=== PATIENT | female | born 2005 | race Caucasian/White ===

== ENCOUNTER 2025-03-11 19:06 | Observation (INO) | payer MEDICAID, SELFPAY ==
[2025-03-11 19:32] VITALS: BP 133/85; PULSE 92; RESP 16; RESP 98; TEMP 36.8; BMI 25.3
[2025-03-11 19:46] VITALS: BP 113/56; PULSE 81
--- NOTE | 2025-03-12 08:13 | PC.CC ---
spoke to Dr. Trammell after reviewing discharges requiring HH. He clarified patient does not need HH.
== END 2025-03-11 20:31 | disposition home health service (06) ==
PROVIDERS: Admitting Provider Specialist; PCP Family Medicine; Visit Provider Specialist
DX: O36.8120 Decreased fetal movements, second trimester, not applicable or unspecified (principal); O26.892 Other specified pregnancy related conditions, second trimester; R10.9 Unspecified abdominal pain; Z3A.23 23 weeks gestation of pregnancy
CPT/HCPCS: 59899

== ENCOUNTER 2025-05-30 09:49 | Outpatient (CLI) | payer MEDICAID, SELFPAY ==
[2025-05-30 09:55] VITALS: BMI 28.8
[2025-05-30 09:56] VITALS: BP 129/80; PULSE 93; RESP 18; RESP 98; TEMP 36.4; O2SAT 98
[2025-05-30 09:57] VITALS: BP 129/80; PULSE 78
[2025-05-30 10:07] VITALS: BP 115/69; PULSE 80
[2025-05-30 10:17] VITALS: BP 113/76; PULSE 81
[2025-05-30] MEDS: BETAMET ACET/BETAMET NA PH (Celestone) 6 MG/ML VIAL 12 MG IM (10:24)
[2025-05-30 10:27] VITALS: BP 130/82; PULSE 80
== END 2025-05-30 10:35 | disposition home or self-care (01) ==
LOC: S4S1 09:50 → S4SX 09:50
PROVIDERS: Referring Provider Specialist; Visit Provider Specialist
DX: Z34.03 Encounter for supervision of normal first pregnancy, third trimester (principal); Z36.9 Encounter for antenatal screening, unspecified; Z3A.34 34 weeks gestation of pregnancy
CPT/HCPCS: 59025; 96372; J0702

== ENCOUNTER 2025-05-31 10:14 | Outpatient (CLI) | payer MEDICAID, SELFPAY ==
[2025-05-31 10:15] VITALS: RESP 16; TEMP 36.6
[2025-05-31 10:18] VITALS: BMI 28.8
[2025-05-31 10:20] VITALS: BP 137/84; PULSE 91; PULSE 94; RESP 18; RESP 98; TEMP 36.6
[2025-05-31] MEDS: BETAMET ACET/BETAMET NA PH (Celestone) 6 MG/ML VIAL 12 MG IM (10:34)
[2025-05-31 10:42] VITALS: BP 114/64; PULSE 78
== END 2025-05-31 10:49 | disposition home or self-care (01) ==
LOC: S4S1 10:15 → S4SX 10:15
PROVIDERS: Referring Provider Obstetrics & Gynecology; Visit Provider Obstetrics & Gynecology
DX: Z34.03 Encounter for supervision of normal first pregnancy, third trimester (principal); Z36.9 Encounter for antenatal screening, unspecified; Z3A.34 34 weeks gestation of pregnancy
CPT/HCPCS: 59025; 96372; J0702

== ENCOUNTER 2025-06-01 09:23 | Observation (INO) | payer MEDICAID, SELFPAY ==
[2025-06-01] VITALS (51 sets, daily range): BP systolic 131–149; BP diastolic 65–86; PULSE 66–87; RESP 18–97; TEMP 36.6; O2SAT 96–98; BMI 29.1
[2025-06-01 11:41] LABS: Collection Type, Urine Clean Catch
[2025-06-01 11:46] LABS: Basophils # (Auto) 0.0 Thou/mm3 (0.0-0.2); Basophils % (Auto) 0 % (0-2.5); Eosinophils # (Auto) 0.0 Thou/mm3 (0.0-0.5); Eosinophils % (Auto) 0 % (0-10); Hematocrit 30.4 % (36.0-46.0); Hemoglobin 10.0 g/dL (12.0-16.0); Immature Granulocytes Auto 0.29 Thou/mm3 (0.00-0.00); Lymphocytes # (Auto) 1.8 Thou/mm3 (1.0-4.8); Lymphocytes % (Auto) 13 % (10-50); Mean Corpuscular HGB Conc 32.9 g/dl (31.0-37.0); Mean Corpuscular Hemoglobin 29.9 pg (25.0-35.0); Mean Corpuscular Volume 91 fL (80-100); Monocytes # (Auto) 1.0 Thou/mm3 (0.0-0.8); Monocytes % (Auto) 7 % (0-12); Neutrophils # (Auto) 11.4 Thou/mm3 (1.8-7.7); Neutrophils % (Auto) 78 % (37-80); Nucleated Red Blood Cell # 0.00 Thou/mm3 (0.00-0.00); Nucleated Red Blood Cell % 0 /100 WBC (0); Platelet Count 229 Thou/mm3 (140-440); RDW Standard Deviation 43.4 fL (36.4-46.3); Red Blood Count 3.34 Miln/mm3 (4.00-5.20); White Blood Count 14.5 Thou/mm3 (3.6-11.0)
[2025-06-01 11:58] LABS: Creatinine,Random Urine 51 mg/dL (30-125); Protein Total, Random Urine 42 mg/dL (1-14)
[2025-06-01 12:23] LABS: Alanine Aminotransferase < 7 U/L (10-49); Albumin, Serum 3.3 gm/dL (3.5-5.0); Albumin/Globulin Ratio 1.4 (1.2-2.2); Alkaline Phosphatase 150 U/L (46-116); Anion Gap 10 (7-16); Aspartate Amino Transferase 14 U/L (0-34); BUN/Creatinine Ratio 18 Ratio (12-20); Bilirubin,Total 0.5 mg/dL (0.3-1.2); Blood Urea Nitrogen 9 mg/dL (9-23); Calcium 8.3 mg/dL (8.3-10.6); Calcium (Corrected) 8.9 mg/dL (8.5-10.1); Carbon Dioxide 21.5 mMol/L (20.0-31.0); Chloride 109 mMol/L (98-107); Creatinine (Component) 0.5 mg/dL (0.6-1.3); Estimated Creatinine Clearance 210.5 mL/min (>60); Globulin 2.3 gm/dL (2.3-3.5); Glucose 97 mg/dL (74-106); LDH (Lactate Dehydrogenase) 180 U/L (120-246); Osmolality,Calculated 278 (275-295); Potassium 3.9 mMol/L (3.4-5.1); Sodium 140 mMol/L (136-145); Total Protein 5.6 gm/dL (5.7-8.2); Uric Acid 4.0 mg/dL (3.1-7.8); eGFR > 60 See Note
[2025-06-01 12:44] LABS: Fibrinogen 346 mg/dL (175-375); INR 0.9 (0.9-1.3); Partial Thromboplastin Time 22.5 Seconds (22.0-36.0); Prothrombin Time 10.0 Seconds (9.0-12.2)
[2025-06-01 12:47] LABS: Bacteria,Urine 2+; Bilirubin,Urine Negative (Negative); Blood,Urine Negative (Negative); Clarity,Urine Clear (Clear/Hazy); Color,Urine Lt-Yellow (Lt Yel-Yel); Glucose, Urine Negative (Negative); Ketones,Urine Negative (Negative); Leukocyte Esterase,Urine Negative (Negative); Nitrite,Urine Negative (Negative); PH,Urine 6.5 (5.0-7.0); Protein,Urine Trace (Neg - Trace); RBC,Urine 1 /hpf (0-3); Specific Gravity,Urine 1.013 (1.001-1.035); Squamous Epithelial Cell,Urine 5 /hpf (0-5); Urobilinogen,Urine Negative mg/dL (0.0-1.0); WBC,Urine 3 /hpf (0-5)
== END 2025-06-01 12:55 | disposition home or self-care (01) ==
PROVIDERS: Admitting Provider Obstetrics & Gynecology; Visit Provider Obstetrics & Gynecology
DX: O26.893 Other specified pregnancy related conditions, third trimester (principal); Z3A.34 34 weeks gestation of pregnancy; R10.30 Lower abdominal pain, unspecified; R10.11 Right upper quadrant pain; R42 Dizziness and giddiness
CPT/HCPCS: 36415; 59025; 59899; 80053; 81001; 82570; 83615; 84156; 84550; 85025; 85384; 85610; 85730

== ENCOUNTER 2025-06-07 19:02 | Observation (INO) | payer MEDICAID, SELFPAY ==
[2025-06-07] VITALS (45 sets, daily range): BP systolic 116–144; BP diastolic 62–97; PULSE 80–107; RESP 18–97; TEMP 36.6; O2SAT 94–98; BMI 29.3
[2025-06-07 19:50] LABS: Collection Type, Urine Clean Catch
[2025-06-07] MEDS: ACETAMINOPHEN 500 MG TABLET 1000 MG PO (19:57)
[2025-06-07 19:58] LABS: Bacteria,Urine 1+; Bilirubin,Urine Negative (Negative); Blood,Urine Negative (Negative); Clarity,Urine Clear (Clear/Hazy); Color,Urine Yellow (Lt Yel-Yel); Glucose, Urine Negative (Negative); Ketones,Urine Negative (Negative); Leukocyte Esterase,Urine Negative (Negative); Nitrite,Urine Negative (Negative); PH,Urine 6.5 (5.0-7.0); Protein,Urine 1+ (Neg - Trace); RBC,Urine 2 /hpf (0-3); Specific Gravity,Urine 1.023 (1.001-1.035); Squamous Epithelial Cell,Urine 12 /hpf (0-5); Urobilinogen,Urine Negative mg/dL (0.0-1.0); WBC,Urine 4 /hpf (0-5)
[2025-06-07 20:13] LABS: Creatinine,Random Urine 94 mg/dL (30-125); Protein Total, Random Urine 142 mg/dL (1-14)
[2025-06-07 20:44] LABS: Basophils # (Auto) 0.0 Thou/mm3 (0.0-0.2); Basophils % (Auto) 0 % (0-2.5); Eosinophils # (Auto) 0.1 Thou/mm3 (0.0-0.5); Eosinophils % (Auto) 1 % (0-10); Hematocrit 32.4 % (36.0-46.0); Hemoglobin 10.9 g/dL (12.0-16.0); Immature Granulocytes Auto 0.05 Thou/mm3 (0.00-0.00); Lymphocytes # (Auto) 2.6 Thou/mm3 (1.0-4.8); Lymphocytes % (Auto) 21 % (10-50); Mean Corpuscular HGB Conc 33.6 g/dl (31.0-37.0); Mean Corpuscular Hemoglobin 29.8 pg (25.0-35.0); Mean Corpuscular Volume 89 fL (80-100); Monocytes # (Auto) 0.9 Thou/mm3 (0.0-0.8); Monocytes % (Auto) 7 % (0-12); Neutrophils # (Auto) 8.9 Thou/mm3 (1.8-7.7); Neutrophils % (Auto) 71 % (37-80); Nucleated Red Blood Cell # 0.00 Thou/mm3 (0.00-0.00); Nucleated Red Blood Cell % 0 /100 WBC (0); Platelet Count 254 Thou/mm3 (140-440); RDW Standard Deviation 42.5 fL (36.4-46.3); Red Blood Count 3.66 Miln/mm3 (4.00-5.20); White Blood Count 12.7 Thou/mm3 (3.6-11.0)
[2025-06-07 21:00] LABS: Fibrinogen 419 mg/dL (175-375); INR 0.9 (0.9-1.3); Partial Thromboplastin Time 24.5 Seconds (22.0-36.0); Prothrombin Time 9.9 Seconds (9.0-12.2)
[2025-06-07 21:30] LABS: Alanine Aminotransferase < 7 U/L (10-49); Albumin, Serum 3.3 gm/dL (3.5-5.0); Albumin/Globulin Ratio 1.5 (1.2-2.2); Alkaline Phosphatase 175 U/L (46-116); Anion Gap 10 (7-16); Aspartate Amino Transferase 13 U/L (0-34); BUN/Creatinine Ratio 22 Ratio (12-20); Bilirubin,Total 0.6 mg/dL (0.3-1.2); Blood Urea Nitrogen 13 mg/dL (9-23); Calcium 9.2 mg/dL (8.3-10.6); Calcium (Corrected) 9.8 mg/dL (8.5-10.1); Carbon Dioxide 22.9 mMol/L (20.0-31.0); Chloride 105 mMol/L (98-107); Creatinine (Component) 0.6 mg/dL (0.6-1.3); Estimated Creatinine Clearance 176.0 mL/min (>60); Globulin 2.2 gm/dL (2.3-3.5); Glucose 103 mg/dL (74-106); Osmolality,Calculated 275 (275-295); Potassium 4.4 mMol/L (3.4-5.1); Sodium 138 mMol/L (136-145); Total Protein 5.5 gm/dL (5.7-8.2); Uric Acid 4.3 mg/dL (3.1-7.8); eGFR > 60 See Note
--- NOTE | 2025-06-07 21:55 | PD.ADDPROG ---
Addendum Progress Note Addendum Date of report being addended: 06/07/25 Narrative: Patient is a 20-year-old G1, P0 at 35 3/[address] Trammell presented to [facility] c/o TORRES and elevated BPs. BPs 140s/90s then stabilized without meds . All preeclamptic labs were normal with the exception of a urine protein creatinine ratio which was a equivalent to 2 g in [address] last time Dr. Trammell ordered the test on 06/01/2025 it was 1 g. Patient denies scotomata or right upper quadrant pain or any headache now. She is comfortable going home. Her other preeclamptic labs are normal. Her urine has 1+ protein. She has an appointment with Dr Trammell on Tuesday and an induction scheduled at 37 weeks. Patient has already been given Celestone x 2. She is to come back to triage for any worsening blood pressures especially in the 150s to 160s over 90s to 100, severe headache, right upper quadrant pain or scotomata.
== END 2025-06-07 22:05 | disposition home or self-care (01) ==
PROVIDERS: Admitting Provider Obstetrics & Gynecology; Visit Provider Obstetrics & Gynecology
DX: O26.893 Other specified pregnancy related conditions, third trimester (principal); R03.0 Elevated blood-pressure reading, without diagnosis of hypertension; Z3A.35 35 weeks gestation of pregnancy
CPT/HCPCS: 36415; 59025; 59899; 80053; 81001; 82570; 84156; 84550; 85025; 85384; 85610; 85730; A9270

== ENCOUNTER 2025-06-19 17:45 | Inpatient (IN) | payer MEDICAID, SELFPAY ==
--- NOTE | 2025-06-18 12:23 | PC.NURSE ---
PT CALLED YESTERDAY AND TODAY, BOTH DAYS THIS RN SPOKE WITH PT, INFORMED OF NO BED AVAILABLE FOR IOL, EDUCATED PT ON KICK COUNT, LABOR AND PRE-E PRECAUTIONS, TODAY INFORMED PT OF THIS RN WILL CALL PT ONCE BED BECOMES AVAILABLE, PT VERBALIZED UNDERSTANDING
[2025-06-19] VITALS (43 sets, daily range): BP systolic 120–183; BP diastolic 60–115; PULSE 74–110; RESP 16–19; TEMP 36.4–36.8; O2SAT 94–100; BMI 29.5
--- NOTE | 2025-06-19 18:55 | XR_ITS ---
Examination: Complete OB ultrasound greater than 14 weeks Date and time of exam: June 19, 2025, 1901 hours INDICATIONS: Labor induction today, unknown weight. Findings: Viable intrauterine single fetus with single amniotic sac presentation cephalic. Cardiac motion 144 BPM. Placenta anterior grade 3. Three-vessel umbilical cord. Amniotic fluid index 8.6 cm. Cervix 4.3 cm. Ovaries obscured by bowel gas.. Composite estimated gestational age based on BPD, head circumference, abdominal circumference, femur length is 35 weeks 3 days. Estimated weight 2383 g. Survey of intracranial anatomy, spinal anatomy, abdominal anatomy, four-chamber heart performed with no abnormalities identified. Impression: Viable intrauterine gestation cephalic presentation Estimated weight 2383 g.
[2025-06-19 19:29] LABS: Collection Type, Urine Clean Catch; WBC,Urine 0 /hpf (0-5)
[2025-06-19 19:48] LABS: Basophils # (Auto) 0.0 Thou/mm3 (0.0-0.2); Basophils % (Auto) 0 % (0-2.5); Eosinophils # (Auto) 0.1 Thou/mm3 (0.0-0.5); Eosinophils % (Auto) 1 % (0-10); Hematocrit 34.1 % (36.0-46.0); Hemoglobin 11.6 g/dL (12.0-16.0); Immature Granulocytes Auto 0.04 Thou/mm3 (0.00-0.00); Lymphocytes # (Auto) 2.4 Thou/mm3 (1.0-4.8); Lymphocytes % (Auto) 22 % (10-50); Mean Corpuscular HGB Conc 34.0 g/dl (31.0-37.0); Mean Corpuscular Hemoglobin 30.1 pg (25.0-35.0); Mean Corpuscular Volume 89 fL (80-100); Monocytes # (Auto) 0.8 Thou/mm3 (0.0-0.8); Monocytes % (Auto) 7 % (0-12); Neutrophils # (Auto) 7.6 Thou/mm3 (1.8-7.7); Neutrophils % (Auto) 70 % (37-80); Nucleated Red Blood Cell # 0.00 Thou/mm3 (0.00-0.00); Nucleated Red Blood Cell % 0 /100 WBC (0); Platelet Count 221 Thou/mm3 (140-440); RDW Standard Deviation 43.8 fL (36.4-46.3); Red Blood Count 3.85 Miln/mm3 (4.00-5.20); White Blood Count 10.9 Thou/mm3 (3.6-11.0)
[2025-06-19 20:03] LABS: Bacteria,Urine 4+; Bilirubin,Urine Negative (Negative); Blood,Urine Trace (Negative); Clarity,Urine Clear (Clear/Hazy); Color,Urine Lt-Yellow (Lt Yel-Yel); Glucose, Urine Negative (Negative); Hyaline Casts,Urine < 1 /hpf (0-1); Ketones,Urine Negative (Negative); Leukocyte Esterase,Urine Negative (Negative); Nitrite,Urine Negative (Negative); PH,Urine 6.5 (5.0-7.0); Protein,Urine 2+ (Neg - Trace); RBC,Urine 3 /hpf (0-3); Specific Gravity,Urine 1.016 (1.001-1.035); Squamous Epithelial Cell,Urine 2 /hpf (0-5); Urobilinogen,Urine Negative mg/dL (0.0-1.0)
[2025-06-19] MEDS: NIFEdipine XL 30 MG TABCR PO (20:08)
[2025-06-19 20:24] LABS: Fibrinogen 462 mg/dL (175-375); INR 0.9 (0.9-1.3); Partial Thromboplastin Time 25.0 Seconds (22.0-36.0); Prothrombin Time 9.8 Seconds (9.0-12.2)
[2025-06-19 20:38] LABS: Creatinine,Random Urine 99 mg/dL (30-125); Protein Total, Random Urine 176 mg/dL (1-14)
[2025-06-19 20:42] LABS: Syphilis Nonreactive (Nonreactive)
[2025-06-19 20:52] LABS: Alanine Aminotransferase < 7 U/L (10-49); Albumin, Serum 3.5 gm/dL (3.5-5.0); Albumin/Globulin Ratio 1.4 (1.2-2.2); Alkaline Phosphatase 209 U/L (46-116); Anion Gap 10 (7-16); Aspartate Amino Transferase 13 U/L (0-34); BUN/Creatinine Ratio 13 Ratio (12-20); Bilirubin,Total 0.6 mg/dL (0.3-1.2); Blood Urea Nitrogen 10 mg/dL (9-23); Calcium 9.4 mg/dL (8.3-10.6); Calcium (Corrected) 9.8 mg/dL (8.5-10.1); Carbon Dioxide 22.8 mMol/L (20.0-31.0); Chloride 105 mMol/L (98-107); Creatinine (Component) 0.8 mg/dL (0.6-1.3); Estimated Creatinine Clearance 132.4 mL/min (>60); Globulin 2.5 gm/dL (2.3-3.5); Glucose 96 mg/dL (74-106); Osmolality,Calculated 274 (275-295); Potassium 3.9 mMol/L (3.4-5.1); Sodium 138 mMol/L (136-145); Total Protein 6.0 gm/dL (5.7-8.2); eGFR > 60 See Note
[2025-06-19 21:01] LABS: Uric Acid 5.2 mg/dL (3.1-7.8)
--- NOTE | 2025-06-19 21:05 | PD.LDHP ---
Documentation for date of: 06/19/25 OB Labor/Induct. HPI History of Present Illness Chief complaint: induction of labor : 1 Para: 0 Term pregnancies: 0 pregnancies: 0 Living children: 0 History of Abortions: Spontaneous and Elective: 0 History of Vaginal deliveries: 0 History of sections: No History of : No Date of last menstrual period: 09/30/24 GRACE: 07/07/25 Gestational Age (weeks): 37 Gestational Age (days): 3 Gestational age based on last menstrual period: 37 Indication for induction: medical complication (pre-eclampsia withOUT severe features ) History of present illness: Patient presents for scheduled induction of labor. Indication: pre-eclampsia withOUT severe features. No regular/painful ctx. No LOF. No vaginal bleeding. Normal movement. No TORRES, vision changes, RUQ pain. History of Present Dating criteria: LMP confirmed by 1st trimester US Adequate Care: Yes Ultrasounds: other (04/30 at 30wk: 28%ile) Narrative: PNC with Dr. Trammell's office Pre-eclampsia withOUT severe features. In office bp's on 04/30 and 05/15 were 150's systolic. 24hr UP on 05/07: 261mg Labs Maternal Blood Type: A Pos Labs: Positive: Rubella Titre, Negative: RPR, Hepatitis B, HIV, Chlamydia and Gonorrhea and Unknown: Herpes Type 1, Herpes Type 2, Group Beta Strep and Covid-19 Review of Systems Review of Systems Narrative Review of Systems: Review of Systems Systems Reviewed: All systems reviewed, normal except as documented Constitutional Constitutional: Denies body ache(s), Denies chills, Denies fever(s) and Denies headache(s) ENT Ears, Nose, Mouth, and Throat: Denies headache(s) and Denies vertigo Cardiovascular Cardiovascular: Denies chest pain, Denies palpitations, Denies dyspnea and Denies syncope Respiratory Respiratory: Denies cough, Denies dyspnea Gastrointestinal Gastrointestinal: Denies nausea and Denies vomiting Neurologic Neurologic: Denies convulsions, Denies headache(s), Denies other visual disturbances, Denies syncope and Denies vertigo Past Medical History Surgical History SURGICAL: Negative Section Meds Home Medications and Allergies Home Medications ?Medication ?Instructions ?Recorded ?Confirmed ?Type aspirin 81 mg tablet,delayed 81 mg PO QDAY 05/30/25 06/19/25 History release vits no.130-ferrous fum 1 tab PO .q day 06/07/25 06/19/25 History 27 mg iron-folic acid 800 mcg tablet ( Vitamin) Allergies Allergy/AdvReac Type Severity Reaction Status Date / Time No Known Allergies Allergy Verified 06/19/25 19:33 OB Exam Physical Exam Vital signs: Temp Pulse Resp BP O2 Del Method 98.3 F 77 18 121/70 Room Air 06/19/25 19:33 06/19/25 20:55 06/19/25 19:33 06/19/25 20:55 06/19/25 18:00 Narrative: General: well developed, well nourished, no acute distress, conversant Cardiac: normal heart rate Lungs: breathing without distress Abdomen: soft, gravid, non-tender, no rebound or guarding Extremities: no pain with palpation of calves Detailed Labor and Delivery Exam Dilation (cm): 0 Effacement (%): 0 Cervix position: posterior station: -3 Consistency: firm Presentation: Vertex (by ultrasound) Membranes: intact Baseline heart rate: 130 monitor accelerations: 15x15 monitor decelerations: None group home variability: Moderate (11-25) Contraction frequency (min): no ctx pattern OB Results Labs 06/19/25 19:00 06/19/25 18:15 Labs: Short CBC 06/19/25 Range/Units 19:00 WBC 10.9 (3.6-11.0) Thou/mm3 Hgb 11.6 L (12.0-16.0) g/dL Hct 34.1 L (36.0-46.0) % Plt Count 221 D (140-440) Thou/mm3 BMP 06/19/25 18:15 Sodium 138 Potassium 3.9 Chloride 105 Carbon Dioxide 22.8 BUN 10 Creatinine 0.8 Glucose 96 Calcium 9.4 Liver Function 06/19/25 Range/Units 18:15 Total Bilirubin 0.6 (0.3-1.2) mg/dL AST 13 (0-34) U/L ALT < 7 L (10-49) U/L Alkaline Phosphatase 209 H (46-116) U/L Albumin 3.5 (3.5-5.0) gm/dL Urine 06/19/25 Range/Units 19:00 Urine Color Lt-Yellow (Lt Yel-Yel) Urine Clarity Clear (Clear/Hazy) Urine pH 6.5 (5.0-7.0) Ur Specific [place] 1.016 (1.001-1.035) Urine Protein 2+ A (Neg - Trace) Urine Glucose (UA) Negative (Negative) OB Assessment & Plan Assessment and Plan (1) Pre-eclampsia affecting , antepartum: Status: Acute Assessment and plan: Ro is a 20yo with SIUP at 37&3wk presenting for IOL for: pre-eclampsia withOUT severe features. SCE: closed/thick/high. Vitals significant for mild range bp's (a couple non-sustained severe range bp's), benign exam. No sx of pre-E. Reassuring assessment overall. PMhx/PNC significant for: PNC with Dr. Trammell's office Pre-eclampsia withOUT severe features. In office bp's on 04/30 and 05/15 were 150's systolic. 24hr UP on 05/07: 261mg. Taking ASA 81mg QD. Significantly, urine p:c has increased from 0.5 to 1.7 between 06/01 and today (06/19). Only other PIH lab of note is serum creatinine (0.8). Hgb 11.6, plt 221, uric acid 5.2, LFTs wnl. In addition, ultrasound ordered upon admission demonstrates IUGR with 3.2%ile (2383g). Plan: -Admit to L&D -Establish IV, routine labs -CEFM -Regular diet [id number], then clear liquid diet in labor -Assembly Associate/consent re: iol and -GBS status: unknown. Ampicillin per protocol. -Will initiate IOL with: cervidil -Initiate nifedipine 30mg XL PO QD for mild range bp's. Close eye to bp's. If sustained severe range bp's occur, will engage labetalol anti-HTN med protocol and initiate IV MgSO4. -Safe to proceed Khushi Thornton MD (2) IUGR (intrauterine growth restriction) affecting care of mother: Status: Acute (3) 37 weeks gestation of : Status: Acute (4) Encounter for induction of labor: Status: Acute (2) IUGR (intrauterine growth restriction) affecting care of mother Qualifiers: Fetus number: single or unspecified fetus Trimester: third trimester Qualified Code(s): O36.5930 - Maternal care for other known or suspected poor growth, third trimester, not applicable or unspecified
[2025-06-19 23:29] LABS: Amphetamine/Metham Scrn,Ur OB Negative (Negative); Benzoylecgonine Screen, Ur OB Negative (Negative); Opiate Screen,Urine OB Negative (Negative); THC Screen,Urine OB Negative (Negative)
[2025-06-20] VITALS (128 sets, daily range): BP systolic 121–169; BP diastolic 72–103; PULSE 71–114; RESP 13–23; TEMP 36.4–36.7; O2SAT 89–100
--- NOTE | 2025-06-20 08:30 | PD.LDPN ---
Documentation for date of: 06/20/25 OB Labor Progress Note Pelvic Exam Dilation (cm): 0 Effacement (%): 0 station: -3 Amniotic membrane status: Intact Contractions Monitor mode: External Contraction frequency: 1.5-2.5 Contraction intensity: Mild Status status: Category l Assessment and Plan Comments: Intrapartum Note Patient doing well. Cervidil has been in 11 hours and ctx on the monitor are every 1 to 2 minutes, though not painful. Vitals: normotensive to mild range bp's, afebrile Cat I FHRT SCE: ft/thick/high, very posterior. Cervidil removed. Will initiate cytotec 25mcg PV Q4hr Will attempt cervical parks balloon when possible Continue nifedipine 30mg XL PO QD Continue to closely observe bp's CEFM Safe to proceed Khushi Thornton MD
[2025-06-20] MEDS: TERBUTALINE SULF INJ 1 MG/ML VIAL 0.25 MG SC (13:58)
[2025-06-20] MEDS: RINGERS LACTATED 1000 ML 1,000 ML 100 ML IV (14:00)
--- NOTE | 2025-06-20 14:25 | ESPR_ITS ---
Documentation for date of: 06/20/25 OB Labor Progress Note Pelvic Exam Dilation (cm): 0 Effacement (%): 0 station: -3 Amniotic membrane status: Intact Contractions Monitor mode: External Contraction frequency: 1-3 Contraction intensity: Mild Status status: Category ll Assessment and Plan Comments: Decision for section I was called by RN for a few late FHR decels after first dose of cytotec (resolved with repositioning). Tracing reviewed. Discussed with patient that if already having late FHR decels, and fetus is 3%ile, likely will not tolerate the labor process. She is very amenable to section. Will proceed with PLTCS for intolerance to labor in the setting of IUGR. -Counseled/consented re: section. Discussed all r/b/a to include: bleeding (possible need for blood transfusion), infection (subcutaneous, deeper layers or uterine with possible need for prolonged admission or re-admission for IV antibiotics, I&D with wound packing, etc), injury to nearby structures such as bladder, bowel, ureters, blood vessels, nerves with possible need for re- operation, pain, injury to baby, hysterectomy, DVT/PE, . Answered all questions to patient and their support person's satisfaction. -IV abx ppx: ancef 2g IV x1 -Nursing and anesthesia team aware of plan for section. Will proceed to OR when team is ready Khushi Thronton MD
[2025-06-20] MEDS: ceFAZolin/D5W 2 GM IV 2 GM/100 ML BAG IV (15:15)
[2025-06-20] MEDS: METOCLOPRAMIDE INJ 5 MG/ML VIAL 2 ML 10 MG IVP (15:16)
[2025-06-20] MEDS: FAMOTIDINE INJ 10 MG/ML VIAL 2 ML 20 MG IV (15:16)
--- NOTE | 2025-06-20 16:53 | PD.GYNPROC ---
Operative Note - LIEUTENANT COLONEL Procedure Date of procedure: 06/20/25 Procedure Performed: Primary Low Transverse Section Indication: Ro is a 20yo with SIUP at 37w4d undergoing induction of labor for pre-eclampsia withOUT severe features in the setting of intra-uterine growth restriction (3%ile). She received cervidil and then cytotec (one dose), after which she began to have intermittent late heart rate decelerations. Pre-Op diagnosis: SIUP at 37w4d Pre-eclampsia withOUT severe features Intra-uterine growth restriction 3%ile Category II FHRT remote from delivery ( intolerance to labor) Post-Op diagnosis: SIUP at 37w4d Pre-eclampsia withOUT severe features Intra-uterine growth restriction 3%ile Category II FHRT remote from delivery ( intolerance to labor) Anesthesia type: Spinal Fluids: crystalloid Fluid amount (mL): 600 Urine output (mL): 200 Estimated blood loss (ml): 650 Findings: Male infant in OT presentation, apgars 9/9, weight [id number], TOB 1555. Normal appearing uterus, fallopian tubes and ovaries. Complications: none Narrative: After obtaining informed consent, the patient was taken to the operating room. There was reassuring heart rate tracing prior. Spinal anesthesia was administered. A parks catheter was placed and bilateral sequential compression devices were placed. She was then prepped and draped in the normal sterile fashion in the dorsal supine position with left lateral tilt. A timeout was performed to confirm patient name, date of , procedure and indication. The team was in agreement. Spinal anesthesia was found to be adequate using an Allis clamp. Anceph 2g IV x1 were given for prophylaxis. A Pfannenstiel skin incision was then made with the scalpel and carried through to the underlying layer of fascia. The fascia was incised in the midine and the incision was extended laterally with the Mays scissors. The superior and inferior aspects of the fascial incision were then grasped with the Agustín clamps, elevated and the underlying rectus muscles were dissected off bluntly and sharply. The peritoneum was entered digitally and the rectus muscles were then in the midline. The peritoneal incision was then extended superiorly and inferiorly with good visualization of the bladder. An Chava retractor was placed and the vesicouterine peritoneum was then identified, grasped with the pickups, and entered sharply with the Metzenbaum scissors. The incision was extended laterally and the bladder flap created digitally. The lower uterine segment was scored in a transverse fashion with the scalpel. The uterus was then entered bluntly and the incision was extended with traction with clear amniotic fluid noted. The infant's head was elevated to the level of the incision. Fundal pressure was applied. The head was delivered atraumatically in the OT position. The anterior shoulder, posterior shoulder and corpus were delivered without difficulty. The nose and mouth were suctioned with bulb suction and cord was clamped x2 and cut. was vigorous. The was handed off to the awaiting nursing team. Cord blood obtained for typing. The placenta was then removed with uterine massage and cord traction. The uterus was exteriorized and cleared of all clot and debris. The uterine incision was repaired with 0-vicryl suture in a running locking fashion. A second layer of O-monocryl was used to closed the hysterotomy incision in an imbricating fashion. The uterine incision was inspected and hemostasis was noted. IV pitocin was given per protocol and there was good uterine tone. The posterior cul-de-sac was suctioned and the uterus returned to the abdomen. The gutters were cleared of all clot. Chava retractor was removed. The peritoneum was closed using a 3-0 vicryl suture in running fashion. The rectus muscles were inspected and small areas of oozing were cauterized. The fascia was reapproximated with 0-Vicryl suture in a running fashion. The subcutaneous tissue was then irrigated. Margaret's fascia was reapproximated using 3-0 vicryl suture in a running fashion in 2 layers. The skin was reapproximated with 4-0 monocryl suture in running subcuticular fashion. The incision was cleaned with a wet lap and dried with a dry lap. Tktrtxevx-zycxzbcszit-yeeb bandage was applied overlying the incision and activated according to telecommunications facility examiner instructions. Fundus was firm at the umbilicus. Sponge, lap and needle counts were correct x2. The procedure was without complications and the patient tolerated the procedure well. She was taken to recover further on Labor and Delivery, in stable condition. Surgical staff Operation Date: 06/20/25 15:15 <No data on this case meets the specified criteria> Diagnosis Discharge Diagnosis (1) intolerance to labor, delivered, current hospitalization: Status: Acute (2) Delivery by section: Status: Acute (3) IUGR (intrauterine growth restriction) affecting care of mother: Status: Acute (4) Pre-eclampsia affecting , antepartum: Status: Acute (5) 37 weeks gestation of : Status: Acute Problem List Completed Was Problem List Reviewed/Reconciled?: Yes (3) IUGR (intrauterine growth restriction) affecting care of mother Qualifiers: Fetus number: single or unspecified fetus Trimester: third trimester Qualified Code(s): O36.5930 - Maternal care for other known or suspected poor growth, third trimester, not applicable or unspecified
[2025-06-20] MEDS: ACETAMINOPHEN IVPB 1,000 MG/100 ML VIAL 250 MG IV (18:40)
[2025-06-20] MEDS: OXYTOCIN in NS 20 units 20 UNIT/1,000 ML BAG 125 UNIT IV (18:40)
[2025-06-20] MEDS: NIFEdipine XL 30 MG TABCR PO (19:05)
--- NOTE | 2025-06-20 19:22 | PC.NURSE ---
1855-Norberto OCAMPO made aware of BPs from recovery including most recent 162/102. Orders received for patient to receive nifedipine 30mg dose now and change order going forward to BID
[2025-06-20] MEDS: KETOROLAC INJ 30 MG/ML VIAL IVP (21:57)
[2025-06-21] VITALS (8 sets, daily range): BP systolic 129–147; BP diastolic 80–98; PULSE 76–107; RESP 15–18; TEMP 36.4–36.8; O2SAT 95–99
[2025-06-21] MEDS: ACETAMINOPHEN IVPB 1,000 MG/100 ML VIAL 250 MG IV (00:47)
[2025-06-21] MEDS: OXYTOCIN in NS 20 units 20 UNIT/1,000 ML BAG 125 UNIT IV (04:18)
[2025-06-21] MEDS: KETOROLAC INJ 30 MG/ML VIAL IVP ×2 (04:25→10:30)
[2025-06-21 06:54] LABS: Basophils # (Auto) 0.0 Thou/mm3 (0.0-0.2); Basophils % (Auto) 0 % (0-2.5); Eosinophils # (Auto) 0.0 Thou/mm3 (0.0-0.5); Eosinophils % (Auto) 0 % (0-10); Hematocrit 31.0 % (36.0-46.0); Hemoglobin 10.7 g/dL (12.0-16.0); Immature Granulocytes Auto 0.09 Thou/mm3 (0.00-0.00); Lymphocytes # (Auto) 2.0 Thou/mm3 (1.0-4.8); Lymphocytes % (Auto) 10 % (10-50); Mean Corpuscular HGB Conc 34.5 g/dl (31.0-37.0); Mean Corpuscular Hemoglobin 30.7 pg (25.0-35.0); Mean Corpuscular Volume 89 fL (80-100); Monocytes # (Auto) 1.1 Thou/mm3 (0.0-0.8); Monocytes % (Auto) 5 % (0-12); Neutrophils # (Auto) 16.8 Thou/mm3 (1.8-7.7); Neutrophils % (Auto) 84 % (37-80); Nucleated Red Blood Cell # 0.00 Thou/mm3 (0.00-0.00); Nucleated Red Blood Cell % 0 /100 WBC (0); Platelet Count 213 Thou/mm3 (140-440); RDW Standard Deviation 45.0 fL (36.4-46.3); Red Blood Count 3.48 Miln/mm3 (4.00-5.20); White Blood Count 20.0 Thou/mm3 (3.6-11.0)
[2025-06-21] MEDS: NIFEdipine XL 30 MG TABCR PO ×2 (08:31→21:02)
[2025-06-21] MEDS: PRENATAL VITAMIN/FE FUM/FA TABLET 1 TAB PO (08:32)
[2025-06-21] MEDS: DOCUSATE SOD 100 MG CAPSULE PO ×2 (08:32→21:02)
[2025-06-21] MEDS: IBUPROFEN TAB 400 MG TABLET 800 MG PO (16:34)
[2025-06-21] MEDS: HYDROcodone/APAP 5/325 TABLET 1 TAB PO (19:49)
[2025-06-22 03:55] VITALS: BP 141/91; PULSE 97; RESP 16; TEMP 36.5; O2SAT 97
[2025-06-22 05:46] LABS: Basophils # (Auto) 0.0 Thou/mm3 (0.0-0.2); Basophils % (Auto) 0 % (0-2.5); Eosinophils # (Auto) 0.1 Thou/mm3 (0.0-0.5); Eosinophils % (Auto) 1 % (0-10); Hematocrit 30.3 % (36.0-46.0); Hemoglobin 10.1 g/dL (12.0-16.0); Immature Granulocytes Auto 0.05 Thou/mm3 (0.00-0.00); Lymphocytes # (Auto) 2.3 Thou/mm3 (1.0-4.8); Lymphocytes % (Auto) 20 % (10-50); Mean Corpuscular HGB Conc 33.3 g/dl (31.0-37.0); Mean Corpuscular Hemoglobin 30.1 pg (25.0-35.0); Mean Corpuscular Volume 90 fL (80-100); Monocytes # (Auto) 0.9 Thou/mm3 (0.0-0.8); Monocytes % (Auto) 8 % (0-12); Neutrophils # (Auto) 8.0 Thou/mm3 (1.8-7.7); Neutrophils % (Auto) 71 % (37-80); Nucleated Red Blood Cell # 0.00 Thou/mm3 (0.00-0.00); Nucleated Red Blood Cell % 0 /100 WBC (0); Platelet Count 209 Thou/mm3 (140-440); RDW Standard Deviation 46.7 fL (36.4-46.3); Red Blood Count 3.36 Miln/mm3 (4.00-5.20); White Blood Count 11.3 Thou/mm3 (3.6-11.0)
[2025-06-22] MEDS: IBUPROFEN TAB 400 MG TABLET 800 MG PO (06:45)
[2025-06-22 08:20] VITALS: BP 140/85; PULSE 101
[2025-06-22] MEDS: NIFEdipine XL 30 MG TABCR PO (08:20)
[2025-06-22] MEDS: DOCUSATE SOD 100 MG CAPSULE PO (08:20)
[2025-06-22] MEDS: PRENATAL VITAMIN/FE FUM/FA TABLET 1 TAB PO (08:20)
[2025-06-22 08:26] VITALS: BP 140/85; PULSE 101; RESP 16; TEMP 36.5; O2SAT 97
--- NOTE | 2025-06-22 10:10 | ESPR_ITS ---
Subjective Subjective Interval history: Patient is a 20-year-old G1 now P1001 status post primary for intolerance to labor at 37-3/[address] Miller performed her she had a on 821 at 1653. Today the patient is resting comfortably. She wants to go home. She was on magnesium for 24 hours and this was discontinued yesterday. Patient is voiding and ambulating tolerating pain medication passing flatus and tolerating a general diet. She is bottlefeeding. Exam Vital Signs Temp Pulse Resp BP Pulse Ox O2 Del Method 97.7 F 101 H 16 140/85 H 97 Room Air 06/22/25 08:26 06/22/25 08:26 06/22/25 08:26 06/22/25 08:26 06/22/25 08:26 06/22/25 08:26 Narrative Exam Fundus firm nontender incision clean dry and intact extremities show 3+ pitting edema to her ankles. Objective Labs 06/22/25 05:16 06/19/25 18:15 Labs: Laboratory Results - last 24 hr 06/22/25 05:16 WBC 11.3 H D RBC 3.36 L Hgb 10.1 L Hct 30.3 L MCV 90 MCH 30.1 MCHC 33.3 RDW Std Deviation 46.7 H Plt Count 209 Neut % (Auto) 71 Lymph % (Auto) 20 [place] % (Auto) 8 Eos % (Auto) 1 Baso % (Auto) 0 Neut # (Auto) 8.0 H Lymph # (Auto) 2.3 [place] # (Auto) 0.9 H Eos # (Auto) 0.1 Baso # (Auto) 0.0 Immature Gran # (Auto) 0.05 H Absolute Nucleated RBC 0.00 Immature Gran % 0 Nucleated RBC % 0 Assessment & Plan Problem List (1) intolerance to labor, delivered, current hospitalization: Status: Acute (2) Delivery by section: Problem details: Patient is doing well. Discharge home postoperative day #2 in stable condition. Status: Acute (3) Preeclampsia: Problem details: Status post magnesium x 24 hours. Patient ambulating. She is on Procardia 30 mg p.o. daily. Also give Lasix for swelling x 3 days. Follow-up with Dr Trammell in 1 week for blood pressure check. Status: Acute Time Spent With Patient Time: Total time spent is greater than 50% in coordination of care (as documented) at patient's floor/unit and/or counseling patient: Time with patient: less than 15 minutes
--- NOTE | 2025-06-22 10:13 | ESDS_ITS ---
DS: Providers Provider Date of admission: 06/19/25 17:45 Primary care physician: Physician No Primary/Family Admitting Provider: Khushi Thornton MD Attending Provider on Admission: Khushi Thornton MD Consults: 06/20/25 16:49 Referral Routine Comment: Attending Provider on DC: Tea Hager MD ([facility]) Discharging Provider: Tea Hager MD ([facility]) Anticipated date of discharge: 06/22/25 DS: Diagnosis Discharge Diagnosis (1) Preeclampsia: Status: Acute Assessment & Plan: On Procardia 30 mg p.o. daily. Lasix x 3 days. (2) Delivery by section: Status: Acute (3) intolerance to labor, delivered, current hospitalization: Status: Acute (4) care following delivery: Status: Acute Assessment & Plan: Discharge instructions given. Discharged home postoperative day #2 in stable condition Problem List Completed Was Problem List Reviewed/Reconciled?: Yes Summary/Hosp Course Brief History: The patient is a 20-year-old G1, P0 at 37-3/7 weeks with all care with Dr Trammell who presented for a scheduled induction of labor. Indication: pre- eclampsia withOUT severe features. No regular/painful ctx. No LOF. No vaginal bleeding. Normal movement. No TORRES, vision changes, RUQ pain. Patient was admitted by Dr. Thornton on 06/20. She had attempted induction of labor but baby had a category 3 tracing and she underwent a primary by Dr. Thornton / around 5:00 PM. Please see H&P for further details. She please see op report for further details. Postoperative day #1 patient was doing well she had her magnesium discontinued. She had a Esquivel removed and unfortunately could not void and after 6 hours, she had to have a straight cath. After that she could void. She had a couple of elevated blood pressures on Procardia so she was kept overnight till postoperative day #2. On postoperative day #2 , the patient was voiding ,ambulating, and tolerating a general diet. Her blood pressure was under control with Procardia. Her predelivery hemoglobin is 11.6 postdelivery hemoglobin 10.1. She was discharged home postoperative day #2 in stable condition. Peripartum Data Delivery Method: Low Transverse Episiotomy Description: None Procedures: Procedures Operation Date: 06/20/25 15:15 Actual Procedure Side Surgeon p in OB Not Applicable Khushi Thornton MD complications: none Status at Discharge Cognitive/behavioral status at discharge: Patient is alert and oriented x 3 in no apparent distress Functional status at discharge: independent ambulation Overall status at discharge: patient is progressing back to baseline Time Spent with Patient Time attestation: Total time spent providing and/or coordinating discharge services: Time spent: Less than 30 minutes Specific discharge activities: No heavy lifting, intercourse, tampons, douching, heavy exercise x 6 weeks. Exam Vital Signs Temp Pulse Resp BP Pulse Ox O2 Del Method 97.7 F 101 H 16 140/85 H 97 Room Air 06/22/25 08:26 06/22/25 08:26 06/22/25 08:26 06/22/25 08:26 06/22/25 08:26 06/22/25 08:26 Narrative Exam Fundus firm at umbilicus nontender. Incision clean dry and intact. Extremities show 3+ pitting edema to ankles. Discharge Plan Plan Patient Disposition: HOME (Self Care) Disposition Comment: Stable Patient condition on transfer: Stable Prescriptions/Referrals Prescriptions/Med Rec: New hydrocodone-acetaminophen 5-325 mg Tablet 1 tab PO Q6H MDD 4 tablets PRN (Reason: Patient rated pain 7 to 8) 7 Days Qty: 12 0RF docusate sodium 100 mg Capsule 100 mg PO BID 10 Days Qty: 20 0RF ibuprofen 800 mg tablet 800 mg PO Q8HR 10 Days Qty: 30 0RF nifedipine 30 mg Tablet Extended Release 24hr 30 mg PO QDAY 30 Days Qty: 30 0RF furosemide [Lasix] 20 mg tablet 20 mg PO BID Qty: 7 0RF Continued Vitamin 27 mg iron- 800 mcg tablet 1 tab PO .q day Patient Comments: TAKE ONE TABLET BY MOUTH EVERY DAY VITAMIN Discontinued aspirin 81 mg tablet,delayed release (DR/EC) 81 mg PO QDAY Patient Comments: TAKE ONE TABLET BY MOUTH EVERY DAY FOR THE HEART FOR CIRCULATION Referrals: No Primary/Family,Physician [Primary Care Provider] - Patient/Caregiver Discharge Instructions Discharge Activity: activity as tolerated and other Other Discharge Activity Instructions:: vaginal rest and no heavy lifting more than 10 pounds for 6 [address] while taking narcotic. keep incision clean and dry, do not submerge. Other Discharge Diet Instructions: regular diet Education Materials: Understanding Preeclampsia, After Delivery Jenison Concerns, After a Print Language: Green[place]ic Activity Restrictions/Additional Instructions: follow up with Dr. Trammell's office for blood pressure check within 4 days of discharge, call office for appointment Stand Alone Forms: [facility] Award Info., Patient Portal Info Letter Discharge Order Discharge Orders: Discharge (Routine); Ordered 06/22/25 Ordered By: Tea Hager ([facility]) Planned Discharge Date 06/22/25 (1) Preeclampsia Qualifiers: Trimester: third trimester Qualified Code(s): O14.93 - Unspecified pre- eclampsia, third trimester
== END 2025-06-22 12:00 | disposition home or self-care (01) | DRG 540 ==
LOC: S4SX 06-20 14:32 → S4NX 06-20 15:57
PROVIDERS: Obstetrics & Gynecology; Admitting Provider Obstetrics & Gynecology; Visit Provider Obstetrics & Gynecology
PROC: 10E0XZZ Delivery of Products of Conception, External Approach (ICD-10-PCS; CPT 59514; principal; 2025-06-20 15:00)
DX: O14.04 Mild to moderate pre-eclampsia, complicating childbirth (principal); Z37.0 Single live birth; Z3A.37 37 weeks gestation of pregnancy; O36.5930 Maternal care for other known or suspected poor fetal growth, third trimester, not applicable or unspecified; O76 Abnormality in fetal heart rate and rhythm complicating labor and delivery
CPT/HCPCS: 36415; 59409; 76805; 80053; 80307; 81001; 82570; 84156; 84550; 85025; 85384; 85610; 85730; 86780; 86850; 86900; 86901; 94762; A4314; A4649; J0131; J0689; J1100; J1885; J2274; J2371; J2405; J2590; J2765; J3010; J3105; J3490; J7120; A9270; J2270